=== PATIENT | female | born 1980 | race Caucasian/White ===

== ENCOUNTER 2016-10-13 15:53 | Emergency (ER) | payer OTHER ==
[~2016-10-13] VITALS: Ht 165.1 cm; Wt 95.3 kg
[~2016-10-13 15:53] MED LIST: ABILIFY20 MG; ABILIFY20 MG PO; ALBUTEROL0.09 MG/A2 IH; AMBIEN10 M1 PO; AMBIEN10 MG PO; ANAPROX DS550 MG PO; ARTHRITIS MEDS; AVELOX400 MG PO; BACTRIM DS 8001 TA1 PO; CLARITIN10 MG PO; CORDROL20 MG PO; DONNATAL1 TAB PO; FLEXERIL5 MG PO; FOLIC ACID1 MG; FOLIC ACID1 MG PO; HYDROCODONE BIT1 T11; HYDROCODONE BIT1 T11 PO; HYDROXYCHLOROQ200 MG PO; KEFLEX500 MG PO; KLONOPIN1 MG; KLONOPIN1 MG PO; LASIX40 MG PO; LOMOTIL 0.025 M1 TA1 PO; MELATONIN3 M1; METHOTREXATE S2.5 MG; MOBIC7.5 MG PO; MOTRIN800 MG PO; NORCO 325 MG-51 TAB PO; PLAQUENIL200 MG; PLAQUENIL200 MG PO; POTASSIUM20 MEQ PO; PREDNICOT20 MG PO; TRIMOX500 MG PO; VICODIN 5/500 505 MG PO; ZANTAC150 MG; ZITHROMAX250 MG PO; ZOFRAN ODT4 MG SL; [UNRECOGNIZED DRUG - OTHER] PO
[2016-10-13 15:59] VITALS: BP 136/86
[2016-10-13] MEDS ORDERED: REMERON15 M2 PO (16:00)
[2016-10-13] MEDS ORDERED: PLAQUENIL200 MG PO (16:01)
[2016-10-13] MEDS ORDERED: ANAPROX DS550 MG PO (16:08)
== END 2016-10-13 20:19 | disposition home or self-care (01) ==
LOC: ED 15:53
DX: M54.5 Low back pain (principal); M06.9 Rheumatoid arthritis, unspecified; Z88.6 Allergy status to analgesic agent

== ENCOUNTER 2017-06-16 23:24 | Emergency (ER) | payer OTHER ==
[~2017-06-16] VITALS: Wt 104.3 kg
[~2017-06-16 23:24] MED LIST changes: +REMERON15 M2 PO
[2017-06-16 23:46] LABS: BILIRUBIN NEGATIVE (NEGATIVE); BLOOD NEGATIVE (NEGATIVE); CLARITY SL CLOUDY (CLEAR); COLOR YELLOW (YELLOW); GLUCOSE TRACE (NEGATIVE); KETONE NEGATIVE (NEGATIVE); LEUKO ESTERASE NEGATIVE (NEGATIVE); NITRITE NEGATIVE (NEGATIVE); PH 5.5 (5.0-9.0); SPECIFIC GRAVITY 1.025 (1.005-1.030); UROBILINOGEN 0.2 E.U./dl (0.2-1.0)
[2017-06-16 23:54] LABS: EPITHELIAL CELLS 30-35
[2017-06-16 23:57] LABS: WBC 0-2 wbc/hpf (0-5)
[2017-06-17 00:02] LABS: BASO % 0.3 % (0.0-1.0); EOS # 0.1 10*3/uL (0.0-0.4); EOS % 0.9 % (1.0-4.0); HEMATOCRIT 32.6 % (37.0-47.0); HEMOGLOBIN 10.8 g/dl (12.0-16.0); LYMPH # 3.3 10*3/uL (1.3-4.4); LYMPH % 33.1 % (27.0-41.0); MEAN CELL VOLUME 85.8 fl (81.0-99.0); MEAN CORPUSCULAR HGB 28.4 pg (27.0-31.0); MEAN CORPUSCULAR HGB CONC 33.1 g/dl (33.0-37.0); MEAN PLATELET VOLUME 9.9 fl (9.6-12.3); MONO # 0.6 10*3/uL (0.1-1.0); MONO % 6.2 % (3.0-9.0); NEUT # 5.9 10*3/uL (2.3-7.9); NEUT % 58.8 % (47.0-73.0); PLATELET COUNT AUTOMATED 195 10*3/uL (130-400); RED CELL DISTRI WIDTH 13.4 % (0-14.5)
[2017-06-17 00:12] VITALS: BP 132/77
[2017-06-17 00:17] LABS: ALBUMIN 3.5 gm/dl (3.1-4.5); ALKALINE PHOSPHATASE 130 U/L (45-117); BUN 16 mg/dl (7-24); CHLORIDE 100 mmol/L (98-107); CREATININE 0.85 mg/dL (0.55-1.02); LIPASE 231 U/L (73-393); POTASSIUM 3.9 mmol/L (3.5-5.1); SGOT/AST 15 IU/L (3-35); SGPT/ALT 30 U/L (12-78); SODIUM 135 mmol/L (136-145); TOTAL PROTEIN 8.1 gm/dL (6.4-8.2)
== END 2017-06-17 01:21 | disposition home or self-care (01) ==
LOC: ED 23:24
PROVIDERS: Nurse Practitioner Family
DX: R10.11 Right upper quadrant pain (principal); R11.0 Nausea; Z88.5 Allergy status to narcotic agent

== ENCOUNTER 2017-07-25 22:55 | Emergency (ER) | payer SELFPAY ==
[~2017-07-25] VITALS: Ht 167.6 cm; Wt 104.3 kg
[2017-07-25 22:59] VITALS: BP 119/72
[2017-07-25] MEDS ORDERED: ALLEGRA-D 24 H1 EACH PO (23:42)
[2017-07-25] MEDS ORDERED: VIBRAMYCIN100 MG PO (23:42)
[2017-07-25] MEDS ORDERED: ALBUTEROL2.5 MG/0.5 INH (23:43)
[2017-07-25] MEDS ORDERED: TESSALON PERLE100 M1 PO (23:43)
== END 2017-07-26 00:49 | disposition home or self-care (01) ==
LOC: ED
DX: J40 Bronchitis, not specified as acute or chronic (principal); J01.90 Acute sinusitis, unspecified; H92.01 Otalgia, right ear; J45.909 Unspecified asthma, uncomplicated; M06.9 Rheumatoid arthritis, unspecified; Z88.6 Allergy status to analgesic agent; Z79.899 Other long term (current) drug therapy

== ENCOUNTER → 2017-11-23 | Outpatient (CLI) | payer OTHER ==
[~2017-11-23] MED LIST changes: +ALBUTEROL2.5 MG/0.5 INH; +ALLEGRA-D 24 H1 EACH PO; +AMINOPHYLLIN200 MG PO; +HYDROCODONE-AC1 EAC1 PO; +KLONOPIN1 M1 PO; -KLONOPIN1 MG; +METFORMIN HYDR500 MG PO; +PROMETHAZINE12.5 M1 PO; +TESSALON PERLE100 M1 PO; +TRAMADOL HCL50 MG PO; +VIBRAMYCIN100 MG PO; +Zofran4 MG SL
== END | disposition home or self-care (01) ==
LOC: LAB 07:05
DX: E11.9 Type 2 diabetes mellitus without complications (principal)

== ENCOUNTER 2017-12-23 01:22 | Emergency (ER) | payer OTHER ==
[~2017-12-23 01:22] MED LIST changes: -AMINOPHYLLIN200 MG PO; -HYDROCODONE-AC1 EAC1 PO; -METFORMIN HYDR500 MG PO; -PROMETHAZINE12.5 M1 PO; -TRAMADOL HCL50 MG PO; -Zofran4 MG SL
[2017-12-23 01:25] VITALS: BP 123/73
[2017-12-23 01:35] LABS: BILIRUBIN NEGATIVE (NEGATIVE); BLOOD 1+ (NEGATIVE); CLARITY SL CLOUDY (CLEAR); COLOR YELLOW (YELLOW); GLUCOSE NEGATIVE (NEGATIVE); KETONE NEGATIVE (NEGATIVE); LEUKO ESTERASE NEGATIVE (NEGATIVE); NITRITE NEGATIVE (NEGATIVE); SPECIFIC GRAVITY >= 1.030 (1.005-1.030); UROBILINOGEN 0.2 E.U./dl (0.2-1.0)
[2017-12-23 01:41] LABS: EPITHELIAL CELLS 35-40
[2017-12-23 01:42] LABS: BACTERIA 1+
[2017-12-23] MEDS ORDERED: AMINOPHYLLIN200 MG PO (01:44)
== END 2017-12-23 01:46 | disposition home or self-care (01) ==
LOC: ED 01:22
PROVIDERS: Physician Assistant
DX: N39.0 Urinary tract infection, site not specified (principal); Z79.899 Other long term (current) drug therapy; Z88.5 Allergy status to narcotic agent

== ENCOUNTER 2018-02-19 01:23 | Inpatient (IN) | payer OTHER ==
[~2018-02-19] VITALS: Ht 167.6 cm; Wt 91.8 kg
[2018-02-19] VITALS (8 sets, daily range): BP systolic 108–138; BP diastolic 50–79
--- NOTE | ~2018-02-19 | PR ---
[place], [place] PROGRESS NOTE NAME: GAIL MUJICA UNIT #: [id number] ROOM: 518 DOCTOR: MIKE FREITAS MD BIRTHDATE: [birth year] DOS: 02/20/2018 CARDIOLOGY PROGRESS NOTE SUBJECTIVE: The patient was seen in the Cardiology Department today on 02/20/2018 just prior to her stress test. She is a 37-year-old woman who has a history of supraventricular tachycardia and underwent ablation in 2000. She has not had symptomatic palpitations since then. She does have a family history of heart disease in her father. She presents to the hospital on this occasion with atypical chest discomfort, indigestion and one episode of vomiting. There was concern that this could represent angina and we were asked to assist in her care. Thus far, she shows no acute EKG changes. She has had no paroxysmal arrhythmias. Her troponin levels have been normal. Since admission, she continues to have some queasiness, but otherwise feels well. PHYSICAL EXAMINATION: VITAL SIGNS: On exam, her pulse is 74 and regular, blood pressure is 102/64. She is afebrile. NECK: Supple. She has no jugular distention. Carotids are full. LUNGS: Respirations are unlabored. Chest is clear to auscultation and percussion. HEART: Her heart has a regular rhythm without murmurs, rubs or gallops. ABDOMEN: Benign. EXTREMITIES: Showed no edema. IMPRESSION: 1. Atypical precordial chest pain. The patient shows no signs of acute coronary injury despite hours of discomfort. 2. Remote history of supraventricular tachycardia in childhood, treated with ablation in 2000. 3. Type 2 diabetes mellitus. 4. Remote history of cigarette abuse. 5. Family history of coronary artery disease. PLAN: We will proceed with an exercise stress test with further recommendations depending on the results of the stress test. If the stress test is normal, I would consider an evaluation for GI source of her symptoms given the prominent symptom of nausea that she is experiencing. [place], [place] PROGRESS NOTE NAME: GAIL MUJICA UNIT #: [id number] ROOM: 518 DOCTOR: MIKE FREITAS MD BIRTHDATE: [birth year] MIKE FREITAS MD CM:ALFRED [id number] MIKE FREITAS MD 02/21/18 1018 interface
--- NOTE | ~2018-02-19 | CON ---
[place], [place] REPORT OF CONSULTATION NAME: GAIL MUJICA UNIT #: [id number] ROOM: 518 DOCTOR: MIKE FREITAS MD BIRTHDATE: [birth year] DOS: 02/19/2018 CARDIOLOGY CONSULTATION REASON FOR CONSULTATION: Chest heaviness. HISTORY OF PRESENT ILLNESS: The patient is a 37-year-old woman who has no previous history of coronary artery disease, myocardial infarction, or stroke. She does have a history of cardiac arrhythmias and did undergo ablation around 2000 in [place]. She has had no arrhythmias documented since then per her report, but has not followed up with Cardiology either. She was in her normal state of health until about 3 or 4 days ago when she began suffering from a tightness and pressure across her chest and in the center of her chest. Nothing much would make it better or worse. Her appetite was poor and she was nauseous. She did vomit at least once. There was no blood in the vomitus and no coffee grounds. She finally did come to the Emergency Room because she was concerned about the persistence of the discomfort. In all, she has had more or less constant discomfort for about 3 or 4 days. Upon arrival at the Emergency Room, her electrocardiogram showed nonspecific anterior T-wave abnormalities, but no ST elevation or depression. Serial cardiac troponin levels have been entirely normal. PAST MEDICAL HISTORY: Includes, 1. History of arrhythmias. The patient states that she did undergo ablation 2000. 2. Anxiety and depression. 3. Hyperlipidemia. 4. Obesity. 5. Type 2 diabetes mellitus. 6. Former smoker. The patient quit in 2010. 7. The patient reports a history of rheumatoid arthritis, but is not on specific therapy for this. 8. History of cervical cancer. The patient is status post hysterectomy with single oophorectomy. She has one ovary in place, but thinks that she probably is menopausal nonetheless. MEDICATIONS: Prior to admission, clonazepam 1 mg b.i.d., hydrocodone with acetaminophen t.i.d. as needed, metformin 500 mg b.i.d., Remeron 15 mg daily, tramadol 50 mg q.i.d. as needed, and Ambien 10 mg at bedtime. ALLERGIES: THE PATIENT LISTS AN ALLERGY TO CODEINE. FAMILY HISTORY: The patient's father in October of unknown medical problems. The patient states that she does not know what finally took her father's life; he did have a history of coronary artery disease with a myocardial infarction when he was in his 30s. Her mother is alive and well. A few members of her mother's family do have diabetes. REVIEW OF SYSTEMS: The patient denies diplopia or loss of vision. She denies focal weakness. She denies syncope. She denies lightheadedness. She denies [place], [place] REPORT OF CONSULTATION NAME: GAIL MUJICA UNIT #: [id number] ROOM: 518 DOCTOR: MIKE FREITAS MD BIRTHDATE: [birth year] nausea or vomiting except for the episode noted above. She denies hemoptysis or hematemesis. She denies fevers, chills, sweats or recent weight change. She denies change in her bowel or bladder habits. She does have some anorexia, but denies any recent weight change. She did not have any blood in her stools or urine recently. She denies any skin rashes. She denies orthopnea or PND and denies palpitations or syncope. She denies peripheral edema. She does not have heat or cold intolerance and denies polyuria or polydipsia. Remainder of the review of systems is negative except as noted above. SOCIAL HISTORY: The patient is and lives with her . She was a smoker, but quit in 2010. She does not consume significant amounts of alcohol or illegal drugs. PHYSICAL EXAMINATION: GENERAL: The patient is a white female who is awake, alert and oriented. VITAL SIGNS: Pulse is 62 and regular and blood pressure is 110/70. She is afebrile. She weighs 91.8 kg and has a body mass index of 32.7. HEENT: Normocephalic and atraumatic. Extraocular muscles are intact. Sclerae are clear. Pupils are equal, round and react to light. The oral mucosa is moist. Tongue is midline. NECK: Supple. She has no jugular distention or hepatojugular reflux. Carotids are full. There are no bruits. She has no neck or supraclavicular masses, no thyromegaly. LUNGS: Respirations are unlabored. Her chest is clear to auscultation and percussion. She has no presacral edema or chest wall tenderness. HEART: Has a regular rhythm. She has no murmurs, rubs or gallops. The PMI is not displaced. She has no precordial heave, lift or thrill. ABDOMEN: Obese, but otherwise benign, without mass, organomegaly or bruits. She does have slight epigastric tenderness, but this does not reproduce her presenting symptoms. EXTREMITIES: Showed no clubbing, cyanosis or edema. Peripheral pulses are easily palpated in the feet bilaterally. LABORATORY DATA: I reviewed her electrocardiogram, which showed sinus rhythm with nonspecific anterior T-wave abnormalities. Chest x-ray is unremarkable. Serial troponin levels are normal. IMPRESSION: 1. Atypical precordial chest pain. The patient shows no signs of acute coronary injury despite hours of pain. 2. Type 2 diabetes mellitus. 3. Remote history of cigarette abuse. 4. Family history of coronary artery disease. 5. History of arrhythmias in childhood, treated by ablation in 2000. PLAN: We will proceed with an exercise myocardial perfusion study within the next 24 hours. If that is normal and if an echocardiogram is normal, then no other cardiac workup would be indicated and other causes for pain such as GI causes, cholecystitis, etc., would be considered. [place], [place] REPORT OF CONSULTATION NAME: GAIL MUJICA UNIT #: [id number] ROOM: 518 DOCTOR: MIKE FREITAS MD BIRTHDATE: [birth year] MIKE FREITAS MD CM:CONSTR:REPORT OF CONSULTATION 153 02/19/181920 interface
--- NOTE | ~2018-02-19 | PR ---
[place], [place] PROGRESS NOTE NAME: GAIL MUJICA UNIT #: [id number] ROOM: 518 DOCTOR: ISRRAEL, PHD CHAVEZ BIRTHDATE: [birth year] DOS: 02/21/2018 SUBJECTIVE: I met with the patient for followup. She reports feeling much better, both physically and emotionally. Mood was stable and affect was restricted in range. She denied homicidal and suicidal ideation. Discussed the patient's plans for followup treatment and self-care, provided the patient with my business card. The patient will be discharged today. Marley Maciel, CM:ALFRED [id number] PHD SCOTT MACIEL 02/21/18 1437 interface
--- NOTE | ~2018-02-19 | CON ---
[place], [place] REPORT OF CONSULTATION NAME: GAIL MUJICA UNIT #: [id number] ROOM: 518 DOCTOR: ISRRAEL, PHD SCOTT BIRTHDATE: [birth year] DOS: 02/20/2018 HISTORY OF PRESENT ILLNESS: The patient is a 37-year-old female referred by the hospitalist with concerns for depression and bereavement. At the present time, the patient is on the 5th floor of [facility]. The patient's father in October and she continues to grieve his . She is and has a daughter. The patient lives with her and daughter. The patient lives with her and daughter. She works as an aid. Tobacco, alcohol and illegal drug use were denied. PAST MEDICAL HISTORY: Anxiety, arrhythmia, cervical cancer, depression, diabetes, hyperlipidemia, rheumatoid arthritis. MEDICATIONS: Phenergan, Lovenox, Humalog, Protonix, Ultram, dextrose, Zofran, Tylenol, Ambien, Klonopin, [place] 5/325. PHYSICAL EXAMINATION: The patient was awake, alert and oriented to person, place and time. Affect was tearful and mood was depressed. She firmly denies suicidal and homicidal ideation, plan and intent. Discussed her mental health history. Speech and language appeared within normal limits on a conversational basis. Thought process was linear and goal directed. Insight and judgment are appropriate. Discussed the patient's grief Utilize CBT and supportive therapy interventions. The patient appeared to benefit. DIAGNOSES: Major depressive disorder, recurrent, unspecified; unspecified anxiety disorder. RECOMMENDATIONS: Outpatient counseling for depression and bereavement. She also found attending group sessions at the home to be helpful in the past and plans to continue with this as well. She also finds her psychiatric medications to be helpful. I will follow her as needed during her hospitalization. Thank you very much for this consult. Marley Maciel, PhD CM:CONSTR:REPORT OF CONSULTATION 1641 02/21/18 0552 interface
--- NOTE | ~2018-02-19 | EKG ---
[place], [place] ELECTROCARDIOGRAM REPORT NAME: GAIL MUJICA UNIT #: [id number] ROOM: 518 DOCTOR: LESA DRAFT REPORT BIRTHDATE: [birth year] [facility] Test Date: 2018-02-19 Test Time: 01:26:12 Pat Name: GAIL MUJICA Department: Room: 518 Gender: F Participant Administrator: Delta Barksdale : 1980 Requested By: JAZZMINE SANTOS Order Number: [id number] Reading MD: Stef Lake MD Measurements Intervals [employer] Rate: 66 P: 3 OK: 147 QRS: 24 QRSD: 88 T: 15 QT: 409 QTc: 429 Interpretive Statements Sinus rhythm Low voltage, precordial leads Nonspecific T abnormalities, anterior leads Electronically Signed On 02-19-2018 14:26:40 PST by Stef Lake MD CM:EKGRPT:ELECTROCARDIOGRAM REPORT [id number] JAZZMINE WILHELM DRAFT REPORT JAZZMINE SANTOS DO
[~2018-02-19 01:23] MED LIST changes: +AMINOPHYLLIN200 MG PO
[2018-02-19 01:41] LABS: BASO # 0.1 10*3/uL (0.0-0.1); BASO % 0.4 % (0.0-1.0); EOS # 0.1 10*3/uL (0.0-0.4); EOS % 0.9 % (1.0-4.0); HEMATOCRIT 36.8 % (37.0-47.0); MEAN CELL VOLUME 87.8 fl (81.0-99.0); MEAN CORPUSCULAR HGB 28.6 pg (27.0-31.0); MEAN CORPUSCULAR HGB CONC 32.6 g/dl (33.0-37.0); MEAN PLATELET VOLUME 9.9 fl (9.6-12.3); MONO # 0.8 10*3/uL (0.1-1.0); MONO % 6.7 % (3.0-9.0); NEUT # 6.4 10*3/uL (2.3-7.9); NEUT % 56.2 % (47.0-73.0); PLATELET COUNT AUTOMATED 244 10*3/uL (130-400); RED BLOOD COUNT 4.19 10*6/uL (4.10-5.10); RED CELL DISTRI WIDTH 12.9 % (0-14.5); WHITE BLOOD COUNT 11.4 10*3/uL (4.8-10.8)
[2018-02-19 01:52] LABS: ACT PARTIAL THROMBO TIME 25.1 SECONDS (20.8-31.5)
[2018-02-19 01:59] LABS: ALBUMIN 3.7 gm/dl (3.1-4.5); ALKALINE PHOSPHATASE 132 U/L (45-117); BUN 9 mg/dl (7-24); CHLORIDE 102 mmol/L (98-107); POTASSIUM 3.4 mmol/L (3.5-5.1); SGOT/AST 27 IU/L (3-35); SGPT/ALT 39 U/L (12-78); SODIUM 135 mmol/L (136-145); TOTAL PROTEIN 8.5 gm/dL (6.4-8.2)
[2018-02-19 02:02] LABS: TROPONIN I < 0.015 ng/ml (<0.045)
[2018-02-19] MEDS ORDERED: METFORMIN HYDR500 MG PO (02:21)
[2018-02-19] MEDS ORDERED: HYDROCODONE-AC1 EAC1 PO (02:22)
[2018-02-19] MEDS ORDERED: TRAMADOL HCL50 MG PO (02:22)
[2018-02-20] VITALS: BP 104/71
[2018-02-20 06:41] LABS: BASO % 0.6 % (0.0-1.0); EOS # 0.1 10*3/uL (0.0-0.4); EOS % 1.5 % (1.0-4.0); HEMATOCRIT 36.4 % (37.0-47.0); HEMOGLOBIN 11.6 g/dl (12.0-16.0); LYMPH # 3.1 10*3/uL (1.3-4.4); LYMPH % 42.9 % (27.0-41.0); MEAN CELL VOLUME 89.2 fl (81.0-99.0); MEAN CORPUSCULAR HGB 28.4 pg (27.0-31.0); MEAN CORPUSCULAR HGB CONC 31.9 g/dl (33.0-37.0); MEAN PLATELET VOLUME 10.3 fl (9.6-12.3); MONO # 0.4 10*3/uL (0.1-1.0); MONO % 5.9 % (3.0-9.0); NEUT # 3.5 10*3/uL (2.3-7.9); NEUT % 48.3 % (47.0-73.0); PLATELET COUNT AUTOMATED 217 10*3/uL (130-400); RED BLOOD COUNT 4.08 10*6/uL (4.10-5.10); RED CELL DISTRI WIDTH 13.1 % (0-14.5); WHITE BLOOD COUNT 7.2 10*3/uL (4.8-10.8)
[2018-02-20 07:05] LABS: BUN 9 mg/dl (7-24); CHLORIDE 109 mmol/L (98-107); POTASSIUM 3.9 mmol/L (3.5-5.1); SODIUM 143 mmol/L (136-145)
[2018-02-20 07:17] LABS: CREATININE 0.89 mg/dL (0.55-1.02); THYROID STIM HORMONE (HS) 0.653 uIU/ml (0.358-4.75)
[2018-02-20 07:25] LABS: VITAMIN D, 25-HYDROXY 26.8 ng/mL (30-100)
[2018-02-20 08:00] VITALS: BP 102/64
[2018-02-20 08:35] VITALS: BP 102/64
[2018-02-20 12:00] VITALS: BP 119/80
[2018-02-20 16:00] VITALS: BP 103/74
[2018-02-20 20:00] VITALS: BP 111/62
[2018-02-21] VITALS: BP 113/79
[2018-02-21 07:04] LABS: BASO % 0.5 % (0.0-1.0); EOS # 0.1 10*3/uL (0.0-0.4); EOS % 1.7 % (1.0-4.0); HEMOGLOBIN 11.7 g/dl (12.0-16.0); LYMPH # 2.7 10*3/uL (1.3-4.4); LYMPH % 36.3 % (27.0-41.0); MEAN CELL VOLUME 88.5 fl (81.0-99.0); MEAN CORPUSCULAR HGB CONC 31.6 g/dl (33.0-37.0); MEAN PLATELET VOLUME 9.9 fl (9.6-12.3); MONO # 0.5 10*3/uL (0.1-1.0); MONO % 6.6 % (3.0-9.0); NEUT # 4.1 10*3/uL (2.3-7.9); PLATELET COUNT AUTOMATED 215 10*3/uL (130-400); RED BLOOD COUNT 4.18 10*6/uL (4.10-5.10); RED CELL DISTRI WIDTH 13.1 % (0-14.5); WHITE BLOOD COUNT 7.5 10*3/uL (4.8-10.8)
[2018-02-21 07:18] LABS: BUN 12 mg/dl (7-24); CHLORIDE 108 mmol/L (98-107); CREATININE 0.92 mg/dL (0.55-1.02); POTASSIUM 3.8 mmol/L (3.5-5.1); SODIUM 143 mmol/L (136-145)
[2018-02-21 08:00] VITALS: BP 108/74
[2018-02-21] MEDS ORDERED: Zofran4 MG SL (08:33)
[2018-02-21] MEDS ORDERED: PROMETHAZINE12.5 M1 PO (08:33)
== END 2018-02-21 11:00 | disposition home or self-care (01) | DRG 392 ==
LOC: ED 01:23 → 5E 03:50 → EDHOLD 03:50 → 5E 04:01
PROVIDERS: Emergency Medicine; Student in an Organized Health Care Education/Training Program
DX: K21.9 Gastro-esophageal reflux disease without esophagitis (principal); E87.1 Hypo-osmolality and hyponatremia; I47.1 Supraventricular tachycardia; F33.9 Major depressive disorder, recurrent, unspecified; E87.6 Hypokalemia; E11.65 Type 2 diabetes mellitus with hyperglycemia; F41.9 Anxiety disorder, unspecified; E78.5 Hyperlipidemia, unspecified; M06.9 Rheumatoid arthritis, unspecified; E78.1 Pure hyperglyceridemia; E66.9 Obesity, unspecified; Z87.891 Personal history of nicotine dependence; Z88.6 Allergy status to analgesic agent; Z87.440 Personal history of urinary (tract) infections; Z85.41 Personal history of malignant neoplasm of cervix uteri; Z90.710 Acquired absence of both cervix and uterus; Z90.722 Acquired absence of ovaries, bilateral; Z82.49 Family history of ischemic heart disease and other diseases of the circulatory system; Z79.84 Long term (current) use of oral hypoglycemic drugs; Z79.899 Other long term (current) drug therapy; Z80.3 Family history of malignant neoplasm of breast; Z68.32 Body mass index [BMI] 32.0-32.9, adult

== ENCOUNTER 2018-04-10 09:51 | Emergency (ER) | payer OTHER ==
[~2018-04-10] VITALS: Ht 167.6 cm; Wt 90.7 kg
[2018-04-10 09:51] VITALS: BP 126/77
[~2018-04-10 09:51] MED LIST changes: +HYDROCODONE-AC1 EAC1 PO; +METFORMIN HYDR500 MG PO; +PROMETHAZINE12.5 M1 PO; +TRAMADOL HCL50 MG PO; +Zofran4 MG SL
[2018-04-10 10:37] LABS: HEMATOCRIT 38.1 % (37.0-47.0); HEMOGLOBIN 12.3 g/dl (12.0-16.0); MEAN CELL VOLUME 88.4 fl (81.0-99.0); MEAN CORPUSCULAR HGB 28.5 pg (27.0-31.0); MEAN CORPUSCULAR HGB CONC 32.3 g/dl (33.0-37.0); MEAN PLATELET VOLUME 9.7 fl (9.6-12.3); PLATELET COUNT AUTOMATED 170 10*3/uL (130-400); RED BLOOD COUNT 4.31 10*6/uL (4.10-5.10); RED CELL DISTRI WIDTH 12.9 % (0-14.5); WHITE BLOOD COUNT 6.6 10*3/uL (4.8-10.8)
[2018-04-10 10:52] LABS: ALBUMIN 3.2 gm/dl (3.1-4.5); ALKALINE PHOSPHATASE 121 U/L (45-117); BUN 13 mg/dl (7-24); CHLORIDE 106 mmol/L (98-107); CREATININE 0.87 mg/dL (0.55-1.02); LIPASE 62 U/L (73-393); POTASSIUM 4.6 mmol/L (3.5-5.1); SGOT/AST 19 IU/L (3-35); SGPT/ALT 24 U/L (12-78); SODIUM 137 mmol/L (136-145); TOTAL PROTEIN 8.1 gm/dL (6.4-8.2)
[2018-04-10 11:00] LABS: PLATELET SUFFICIENCY NORMAL (NORMAL); TOTAL CELLS COUNTED 100 #CELLS
[2018-04-10 11:01] LABS: POLYCHROMASIA SLIGHT
[2018-04-10 11:30] LABS: BILIRUBIN NEGATIVE (NEGATIVE); BLOOD NEGATIVE (NEGATIVE); CLARITY SL CLOUDY (CLEAR); COLOR YELLOW (YELLOW); GLUCOSE NEGATIVE (NEGATIVE); KETONE NEGATIVE (NEGATIVE); LEUKO ESTERASE NEGATIVE (NEGATIVE); NITRITE NEGATIVE (NEGATIVE); PH 5.5 (5.0-9.0); UROBILINOGEN 0.2 E.U./dl (0.2-1.0)
[2018-04-10 11:46] LABS: BACTERIA 2+
[2018-04-10] MEDS ORDERED: COMPAZINE10 M1 PO (12:44)
== END 2018-04-10 12:47 | disposition home or self-care (01) ==
LOC: ED 09:51
PROVIDERS: Physician Assistant
DX: K52.9 Noninfective gastroenteritis and colitis, unspecified (principal); Z88.5 Allergy status to narcotic agent; Z79.84 Long term (current) use of oral hypoglycemic drugs; Z79.899 Other long term (current) drug therapy; Z90.710 Acquired absence of both cervix and uterus; Z87.891 Personal history of nicotine dependence

== ENCOUNTER 2018-05-14 11:29 | Emergency (ER) | payer OTHER ==
[~2018-05-14] VITALS: Ht 165.1 cm; Wt 87.1 kg
[2018-05-14 11:29] VITALS: BP 121/33
[~2018-05-14 11:29] MED LIST changes: +COMPAZINE10 M1 PO
[2018-05-14 12:12] LABS: BASO % 0.5 % (0.0-1.0); EOS # 0.1 10*3/uL (0.0-0.4); HEMOGLOBIN 12.5 g/dl (12.0-16.0); LYMPH # 2.1 10*3/uL (1.3-4.4); LYMPH % 23.6 % (27.0-41.0); MEAN CELL VOLUME 86.2 fl (81.0-99.0); MEAN CORPUSCULAR HGB 29.1 pg (27.0-31.0); MEAN CORPUSCULAR HGB CONC 33.8 g/dl (33.0-37.0); MEAN PLATELET VOLUME 9.8 fl (9.6-12.3); MONO # 0.4 10*3/uL (0.1-1.0); MONO % 5.1 % (3.0-9.0); NEUT % 69.5 % (47.0-73.0); PLATELET COUNT AUTOMATED 253 10*3/uL (130-400); RED BLOOD COUNT 4.29 10*6/uL (4.10-5.10); WHITE BLOOD COUNT 8.7 10*3/uL (4.8-10.8)
[2018-05-14 12:14] LABS: BILIRUBIN NEGATIVE (NEGATIVE); CLARITY TURBID (CLEAR); COLOR RED (YELLOW); GLUCOSE NEGATIVE (NEGATIVE); KETONE NEGATIVE (NEGATIVE); NITRITE NEGATIVE (NEGATIVE); SPECIFIC GRAVITY 1.025 (1.005-1.030); UROBILINOGEN 0.2 E.U./dl (0.2-1.0)
[2018-05-14 12:22] LABS: ACT PARTIAL THROMBO TIME 25.3 SECONDS (20.8-31.5)
[2018-05-14 12:26] LABS: BLOOD 3+ (NEGATIVE); LEUKO ESTERASE TRACE (NEGATIVE)
[2018-05-14 12:29] LABS: RBC TNTC rbc/hpf (0-2)
[2018-05-14 12:32] LABS: BACTERIA 2+; MUCOUS 1+; WBC TNTC wbc/hpf (0-5)
[2018-05-14 12:39] LABS: ALBUMIN 3.5 gm/dl (3.1-4.5); ALKALINE PHOSPHATASE 136 U/L (45-117); BUN 9 mg/dl (7-24); CHLORIDE 105 mmol/L (98-107); CREATININE 0.85 mg/dL (0.55-1.02); LIPASE 70 U/L (73-393); POTASSIUM 4.1 mmol/L (3.5-5.1); SGOT/AST 22 IU/L (3-35); SGPT/ALT 40 U/L (12-78); SODIUM 138 mmol/L (136-145); TOTAL PROTEIN 8.7 gm/dL (6.4-8.2)
[2018-05-14] MEDS ORDERED: SEPTDS PO (13:06)
== END 2018-05-14 13:10 | disposition home or self-care (01) ==
LOC: ED 11:29
PROVIDERS: Emergency Medicine
DX: N39.0 Urinary tract infection, site not specified (principal); R33.9 Retention of urine, unspecified; E11.9 Type 2 diabetes mellitus without complications; E78.5 Hyperlipidemia, unspecified; E66.9 Obesity, unspecified; M06.9 Rheumatoid arthritis, unspecified; Z79.899 Other long term (current) drug therapy; Z87.891 Personal history of nicotine dependence; Z88.6 Allergy status to analgesic agent; Z90.710 Acquired absence of both cervix and uterus

== ENCOUNTER → 2018-08-09 | Outpatient (CLI) | payer OTHER ==
[~2018-08-09] MED LIST changes: +SEPTDS PO
[2018-08-09 07:37] LABS: HEMATOCRIT 38.9 % (37.0-47.0); HEMOGLOBIN 12.3 g/dl (12.0-16.0); MEAN CELL VOLUME 90.9 fl (81.0-99.0); MEAN CORPUSCULAR HGB 28.7 pg (27.0-31.0); MEAN CORPUSCULAR HGB CONC 31.6 g/dl (33.0-37.0); RED BLOOD COUNT 4.28 10*6/uL (4.10-5.10); RED CELL DISTRI WIDTH 13.3 % (0-14.5); WHITE BLOOD COUNT 10.2 10*3/uL (4.8-10.8)
[2018-08-09 08:10] LABS: ALBUMIN 3.3 gm/dl (3.1-4.5); BUN 17 mg/dl (7-24); CHLORIDE 105 mmol/L (98-107); CREATININE 0.84 mg/dL (0.55-1.02); HDL CHOLESTEROL 31 mg/dl (40-60); POTASSIUM 3.8 mmol/L (3.5-5.1); SGOT/AST 13 IU/L (3-35); SGPT/ALT 28 U/L (12-78); SODIUM 138 mmol/L (136-145)
[2018-08-09 08:13] LABS: ALKALINE PHOSPHATASE 132 U/L (45-117); CHOLESTEROL 201 mg/dL (<200); LDL CHOLESTEROL 99 mg/dL (9-159); TOTAL PROTEIN 8.2 gm/dL (6.4-8.2); TRIGLYCERIDES 354 mg/dl (<150); VLDL CHOLESTEROL 71 mg/dL (6-40)
== END | disposition home or self-care (01) ==
LOC: LAB 06:43
PROVIDERS: Internal Medicine
DX: E11.42 Type 2 diabetes mellitus with diabetic polyneuropathy (principal); E55.9 Vitamin D deficiency, unspecified

== ENCOUNTER → 2018-11-27 | Outpatient (CLI) | payer OTHER ==
[2018-11-27 13:46] LABS: ALBUMIN 4.1 gm/dl (3.1-4.5); ALKALINE PHOSPHATASE 111 U/L (45-117); BUN 13 mg/dl (7-24); CHLORIDE 103 mmol/L (98-107); CHOLESTEROL 218 mg/dL (<200); CREATININE 0.93 mg/dL (0.55-1.02); HDL CHOLESTEROL 43 mg/dl (40-60); LDL CHOLESTEROL 142 mg/dL (9-159); POTASSIUM 4.4 mmol/L (3.5-5.1); SGOT/AST 13 IU/L (3-35); SGPT/ALT 23 U/L (12-78); SODIUM 138 mmol/L (136-145); TOTAL PROTEIN 9.3 gm/dL (6.4-8.2); TRIGLYCERIDES 163 mg/dl (<150); VLDL CHOLESTEROL 33 mg/dL (6-40)
[2018-11-27 13:53] LABS: THYROID STIM HORMONE (HS) 0.308 uIU/ml (0.358-4.75)
== END | disposition home or self-care (01) ==
LOC: LAB 12:53
PROVIDERS: Internal Medicine
DX: E11.42 Type 2 diabetes mellitus with diabetic polyneuropathy (principal)

== ENCOUNTER → 2019-04-07 | Outpatient (CLI) | payer OTHER ==
[~2019-04-07] MED LIST changes: +TESSALON PERLE100 MG PO
[2019-04-07 07:44] LABS: BASO % 0.5 % (0.0-1.0); EOS # 0.1 10*3/uL (0.0-0.4); EOS % 1.8 % (1.0-4.0); HEMATOCRIT 36.1 % (37.0-47.0); HEMOGLOBIN 11.7 g/dl (12.0-16.0); LYMPH # 2.6 10*3/uL (1.3-4.4); LYMPH % 46.3 % (27.0-41.0); MEAN CORPUSCULAR HGB 29.2 pg (27.0-31.0); MEAN CORPUSCULAR HGB CONC 32.4 g/dl (33.0-37.0); MEAN PLATELET VOLUME 9.9 fl (9.6-12.3); MONO # 0.4 10*3/uL (0.1-1.0); MONO % 7.5 % (3.0-9.0); NEUT # 2.4 10*3/uL (2.3-7.9); NEUT % 43.5 % (47.0-73.0); PLATELET COUNT AUTOMATED 208 10*3/uL (130-400); RED BLOOD COUNT 4.01 10*6/uL (4.10-5.10); RED CELL DISTRI WIDTH 12.1 % (0-14.5); WHITE BLOOD COUNT 5.6 10*3/uL (4.8-10.8)
[2019-04-07 07:55] LABS: ALBUMIN 3.4 gm/dl (3.1-4.5); ALKALINE PHOSPHATASE 103 U/L (45-117); BUN 14 mg/dl (7-24); CHLORIDE 107 mmol/L (98-107); CHOLESTEROL 183 mg/dL (<200); CREATININE 0.89 mg/dL (0.55-1.02); HDL CHOLESTEROL 39 mg/dl (40-60); LDL CHOLESTEROL 119 mg/dL (9-159); POTASSIUM 3.8 mmol/L (3.5-5.1); SGOT/AST 12 IU/L (3-35); SGPT/ALT 23 U/L (12-78); SODIUM 140 mmol/L (136-145); TOTAL PROTEIN 8.1 gm/dL (6.4-8.2); TRIGLYCERIDES 124 mg/dl (<150); VLDL CHOLESTEROL 25 mg/dL (6-40)
== END | disposition home or self-care (01) ==
LOC: LAB 06:38
PROVIDERS: Internal Medicine
DX: E11.42 Type 2 diabetes mellitus with diabetic polyneuropathy (principal)

== ENCOUNTER 2019-04-12 02:53 | Emergency (ER) | payer OTHER ==
[~2019-04-12] VITALS: Ht 160 cm; Wt 83.9 kg
[~2019-04-12 02:53] MED LIST changes: -TESSALON PERLE100 MG PO
[2019-04-12 02:57] VITALS: BP 128/47
[2019-04-12] MEDS ORDERED: TESSALON PERLE100 MG PO (04:23)
== END 2019-04-12 04:45 | disposition home or self-care (01) ==
LOC: ED 02:53
DX: J06.9 Acute upper respiratory infection, unspecified (principal); E11.9 Type 2 diabetes mellitus without complications; E78.5 Hyperlipidemia, unspecified; E66.9 Obesity, unspecified; M06.9 Rheumatoid arthritis, unspecified; Z87.891 Personal history of nicotine dependence; Z88.5 Allergy status to narcotic agent; Z79.899 Other long term (current) drug therapy; Z79.2 Long term (current) use of antibiotics; Z68.30 Body mass index [BMI] 30.0-30.9, adult; Z90.710 Acquired absence of both cervix and uterus

== ENCOUNTER 2019-07-22 15:07 | Emergency (ER) | payer OTHER ==
[~2019-07-22] VITALS: Ht 167.6 cm; Wt 85.3 kg
[~2019-07-22 15:07] MED LIST changes: +TESSALON PERLE100 MG PO
[2019-07-22 16:16] VITALS: BP 125/81
[2019-07-22 16:32] LABS: BASO # 0.1 10*3/uL (0.0-0.1); BASO % 0.7 % (0.0-1.0); EOS # 0.1 10*3/uL (0.0-0.4); EOS % 0.7 % (1.0-4.0); LYMPH # 2.4 10*3/uL (1.3-4.4); LYMPH % 32.9 % (27.0-41.0); MEAN CELL VOLUME 89.1 fl (81.0-99.0); MEAN CORPUSCULAR HGB CONC 32.6 g/dl (33.0-37.0); MEAN PLATELET VOLUME 10.1 fl (9.6-12.3); MONO # 0.5 10*3/uL (0.1-1.0); MONO % 7.1 % (3.0-9.0); NEUT # 4.2 10*3/uL (2.3-7.9); NEUT % 58.2 % (47.0-73.0); PLATELET COUNT AUTOMATED 190 10*3/uL (130-400); RED BLOOD COUNT 3.93 10*6/uL (4.10-5.10); RED CELL DISTRI WIDTH 12.2 % (0-14.5); WHITE BLOOD COUNT 7.1 10*3/uL (4.8-10.8)
[2019-07-22 16:48] LABS: BUN 13 mg/dl (7-24); CHLORIDE 110 mmol/L (98-107); CREATININE 0.75 mg/dL (0.55-1.02); POTASSIUM 4.5 mmol/L (3.5-5.1); SODIUM 141 mmol/L (136-145); TROPONIN I < 0.015 ng/ml (<0.045)
== END 2019-07-22 17:40 | disposition home or self-care (01) ==
LOC: ED 15:07
PROVIDERS: Emergency Medicine
DX: R42 Dizziness and giddiness (principal); Z88.5 Allergy status to narcotic agent; Z79.899 Other long term (current) drug therapy; Z79.84 Long term (current) use of oral hypoglycemic drugs; Z79.2 Long term (current) use of antibiotics; F32.9 Major depressive disorder, single episode, unspecified; E11.9 Type 2 diabetes mellitus without complications; E78.5 Hyperlipidemia, unspecified; Z87.891 Personal history of nicotine dependence

== ENCOUNTER → 2019-09-12 | Outpatient (CLI) | payer OTHER | END | disposition home or self-care (01) | LOC: COVID19 13:45 | DX: Z03.818 Encounter for observation for suspected exposure to other biological agents ruled out (principal) ==

== ENCOUNTER → 2019-10-06 | Outpatient (CLI) | payer OTHER ==
[2019-10-06 06:57] LABS: MEAN CELL VOLUME 88.8 fl (81.0-99.0); MEAN CORPUSCULAR HGB 28.7 pg (27.0-31.0); MEAN CORPUSCULAR HGB CONC 32.4 g/dl (33.0-37.0); RED BLOOD COUNT 4.28 10*6/uL (4.10-5.10); RED CELL DISTRI WIDTH 12.6 % (0-14.5); WHITE BLOOD COUNT 6.3 10*3/uL (4.8-10.8)
[2019-10-06 07:34] LABS: ALBUMIN 3.3 gm/dl (3.1-4.5); ALKALINE PHOSPHATASE 114 U/L (45-117); BUN 16 mg/dl (7-24); CHLORIDE 108 mmol/L (98-107); CHOLESTEROL 202 mg/dL (<200); CREATININE 0.98 mg/dL (0.55-1.02); HDL CHOLESTEROL 37 mg/dl (40-60); LDL CHOLESTEROL 130 mg/dL (9-159); POTASSIUM 4.3 mmol/L (3.5-5.1); SGOT/AST 8 IU/L (3-35); SGPT/ALT 24 U/L (12-78); SODIUM 139 mmol/L (136-145); TOTAL PROTEIN 8.2 gm/dL (6.4-8.2); TRIGLYCERIDES 176 mg/dl (<150); VLDL CHOLESTEROL 35 mg/dL (6-40)
== END | disposition home or self-care (01) ==
LOC: LAB 06:23
PROVIDERS: Internal Medicine
DX: E11.42 Type 2 diabetes mellitus with diabetic polyneuropathy (principal)

== ENCOUNTER → 2020-04-08 | Outpatient (CLI) | payer OTHER ==
[~2020-04-08] MED LIST changes: +VALTREX500 MG PO
[2020-04-08 09:00] LABS: BASO % 0.4 % (0.0-1.0); EOS # 0.1 10*3/uL (0.0-0.4); EOS % 1.3 % (1.0-4.0); HEMATOCRIT 40.6 % (37.0-47.0); LYMPH # 2.4 10*3/uL (1.3-4.4); LYMPH % 35.1 % (27.0-41.0); MEAN CELL VOLUME 88.1 fl (81.0-99.0); MEAN CORPUSCULAR HGB CONC 31.8 g/dl (33.0-37.0); MEAN PLATELET VOLUME 9.9 fl (9.6-12.3); MONO # 0.5 10*3/uL (0.1-1.0); MONO % 6.7 % (3.0-9.0); NEUT # 3.8 10*3/uL (2.3-7.9); NEUT % 56.1 % (47.0-73.0); PLATELET COUNT AUTOMATED 231 10*3/uL (130-400); RED BLOOD COUNT 4.61 10*6/uL (4.10-5.10); RED CELL DISTRI WIDTH 12.6 % (0-14.5); WHITE BLOOD COUNT 6.8 10*3/uL (4.8-10.8)
[2020-04-08 09:14] LABS: ALBUMIN 3.8 gm/dl (3.1-4.5); ALKALINE PHOSPHATASE 98 U/L (45-117); BUN 10 mg/dl (7-24); CHLORIDE 112 mmol/L (98-107); CHOLESTEROL 195 mg/dL (<200); CREATININE 0.91 mg/dL (0.55-1.02); HDL CHOLESTEROL 51 mg/dl (40-60); LDL CHOLESTEROL 110 mg/dL (9-159); POTASSIUM 4.3 mmol/L (3.5-5.1); SGOT/AST 20 IU/L (3-35); SGPT/ALT 30 U/L (12-78); SODIUM 141 mmol/L (136-145); TOTAL PROTEIN 8.8 gm/dL (6.4-8.2); TRIGLYCERIDES 168 mg/dl (<150); VLDL CHOLESTEROL 34 mg/dL (6-40)
== END | disposition home or self-care (01) ==
LOC: LAB 08:16
PROVIDERS: ATTEND Internal Medicine
DX: E11.42 Type 2 diabetes mellitus with diabetic polyneuropathy (principal); M79.18 Myalgia, other site; G89.29 Other chronic pain

== ENCOUNTER 2020-05-08 22:37 | Emergency (ER) | payer OTHER ==
[~2020-05-08] VITALS: Ht 165.1 cm; Wt 79.4 kg
[~2020-05-08 22:37] MED LIST changes: -VALTREX500 MG PO
[2020-05-08 22:48] VITALS: BP 107/40
[2020-05-08] MEDS ORDERED: VALTREX500 MG PO (23:01)
== END 2020-05-08 23:09 | disposition home or self-care (01) ==
LOC: ED 22:37
DX: B02.9 Zoster without complications (principal); F41.9 Anxiety disorder, unspecified; E11.9 Type 2 diabetes mellitus without complications; Z88.5 Allergy status to narcotic agent; Z79.899 Other long term (current) drug therapy; Z79.84 Long term (current) use of oral hypoglycemic drugs; Z90.710 Acquired absence of both cervix and uterus

== ENCOUNTER → 2020-10-07 | Outpatient (CLI) | payer OTHER ==
[~2020-10-07] MED LIST changes: +VALTREX500 MG PO
[2020-10-07 11:44] LABS: BASO % 0.6 % (0.0-1.0); EOS # 0.1 10*3/uL (0.0-0.4); EOS % 1.1 % (1.0-4.0); HEMATOCRIT 38.3 % (37.0-47.0); LYMPH # 2.6 10*3/uL (1.3-4.4); LYMPH % 35.9 % (27.0-41.0); MEAN CELL VOLUME 89.1 fl (81.0-99.0); MEAN CORPUSCULAR HGB 28.6 pg (27.0-31.0); MEAN CORPUSCULAR HGB CONC 32.1 g/dl (33.0-37.0); MEAN PLATELET VOLUME 9.7 fl (9.6-12.3); MONO # 0.5 10*3/uL (0.1-1.0); NEUT # 3.9 10*3/uL (2.3-7.9); NEUT % 55.1 % (47.0-73.0); PLATELET COUNT AUTOMATED 202 10*3/uL (130-400); RED CELL DISTRI WIDTH 12.1 % (0-14.5); WHITE BLOOD COUNT 7.1 10*3/uL (4.8-10.8)
[2020-10-07 12:05] LABS: ALBUMIN 3.7 gm/dl (3.1-4.5); ALKALINE PHOSPHATASE 86 U/L (45-117); BUN 13 mg/dl (7-24); CHLORIDE 106 mmol/L (98-107); CHOLESTEROL 189 mg/dL (<200); CREATININE 0.68 mg/dL (0.55-1.02); LDL CHOLESTEROL 105 mg/dL (9-159); POTASSIUM 4.4 mmol/L (3.5-5.1); SGOT/AST 23 IU/L (3-35); SGPT/ALT 38 U/L (12-78); SODIUM 137 mmol/L (136-145); TOTAL PROTEIN 8.1 gm/dL (6.4-8.2); TRIGLYCERIDES 212 mg/dl (<150)
== END | disposition home or self-care (01) ==
LOC: LAB 10:55
PROVIDERS: ATTEND Internal Medicine
DX: E11.42 Type 2 diabetes mellitus with diabetic polyneuropathy (principal); M06.031 Rheumatoid arthritis without rheumatoid factor, right wrist; M06.032 Rheumatoid arthritis without rheumatoid factor, left wrist

== ENCOUNTER 2021-01-14 21:20 | Emergency (ER) | payer MEDICAID ==
[~2021-01-14] VITALS: Ht 165.1 cm; Wt 77.1 kg
[2021-01-14 21:25] VITALS: BP 127/71
[2021-01-14] MEDS ORDERED: TRAZODONE50 MG PO (21:33)
[2021-01-14 22:00] LABS: BASO % 0.4 % (0.0-1.0); EOS # 0.1 10*3/uL (0.0-0.4); EOS % 0.7 % (1.0-4.0); LYMPH # 2.8 10*3/uL (1.3-4.4); MEAN CELL VOLUME 90.7 fl (81.0-99.0); MEAN CORPUSCULAR HGB 29.4 pg (27.0-31.0); MEAN CORPUSCULAR HGB CONC 32.4 g/dl (33.0-37.0); MEAN PLATELET VOLUME 9.2 fl (9.6-12.3); MONO # 0.8 10*3/uL (0.1-1.0); MONO % 7.7 % (3.0-9.0); NEUT # 6.3 10*3/uL (2.3-7.9); NEUT % 62.8 % (47.0-73.0); PLATELET COUNT AUTOMATED 196 10*3/uL (130-400); RED BLOOD COUNT 4.08 10*6/uL (4.10-5.10); RED CELL DISTRI WIDTH 12.5 % (0-14.5)
[2021-01-14 22:39] LABS: ALBUMIN 3.5 gm/dl (3.1-4.5); ALKALINE PHOSPHATASE 121 U/L (45-117); BUN 22 mg/dl (7-24); CHLORIDE 107 mmol/L (98-107); CREATININE 0.92 mg/dL (0.55-1.02); POTASSIUM 3.9 mmol/L (3.5-5.1); SGOT/AST 11 IU/L (3-35); SGPT/ALT 40 U/L (12-78); SODIUM 139 mmol/L (136-145); TOTAL PROTEIN 8.3 gm/dL (6.4-8.2)
[2021-01-15] MEDS ORDERED: LEVOFLOXACIN750 M2 PO (23:13)
== END 2021-01-14 23:43 | disposition home or self-care (01) ==
LOC: ED 21:20
PROVIDERS: Internal Medicine
DX: B34.9 Viral infection, unspecified (principal); Z20.822 Contact with and (suspected) exposure to COVID-19; Z88.6 Allergy status to analgesic agent; Z87.891 Personal history of nicotine dependence

== ENCOUNTER 2021-01-15 18:33 | Emergency (ER) | payer MEDICAID ==
[~2021-01-15] VITALS: Ht 165.1 cm; Wt 77.1 kg
[~2021-01-15 18:33] MED LIST changes: +TRAZODONE50 MG PO
[2021-01-15] MEDS ORDERED: LEVOFLOXACIN750 M2 PO (23:13)
[2021-01-15 23:25] VITALS: BP 128/66
== END 2021-01-15 23:49 | disposition home or self-care (01) ==
LOC: ED 18:33
DX: J18.9 Pneumonia, unspecified organism (principal); Z88.6 Allergy status to analgesic agent; Z87.891 Personal history of nicotine dependence

== ENCOUNTER 2021-01-29 23:30 | Emergency (ER) | payer OTHER ==
[~2021-01-29 23:30] MED LIST changes: +LEVOFLOXACIN750 M2 PO
[2021-01-29 23:39] VITALS: BP 102/61
[2021-01-30 00:13] LABS: BASO % 0.3 % (0.0-1.0); EOS # 0.1 10*3/uL (0.0-0.4); EOS % 0.9 % (1.0-4.0); HEMATOCRIT 34.6 % (37.0-47.0); LYMPH # 3.3 10*3/uL (1.3-4.4); LYMPH % 34.3 % (27.0-41.0); MEAN CELL VOLUME 87.8 fl (81.0-99.0); MEAN CORPUSCULAR HGB 29.4 pg (27.0-31.0); MEAN CORPUSCULAR HGB CONC 33.5 g/dl (33.0-37.0); MEAN PLATELET VOLUME 10.2 fl (9.6-12.3); MONO # 0.6 10*3/uL (0.1-1.0); NEUT # 5.5 10*3/uL (2.3-7.9); NEUT % 58.1 % (47.0-73.0); PLATELET COUNT AUTOMATED 210 10*3/uL (130-400); RED BLOOD COUNT 3.94 10*6/uL (4.10-5.10); RED CELL DISTRI WIDTH 11.9 % (0-14.5); WHITE BLOOD COUNT 9.5 10*3/uL (4.8-10.8)
[2021-01-30 00:25] LABS: BUN 9 mg/dl (7-24); CHLORIDE 109 mmol/L (98-107); CREATININE 0.76 mg/dL (0.55-1.02); POTASSIUM 3.4 mmol/L (3.5-5.1); SODIUM 142 mmol/L (136-145)
[2021-01-30] MEDS ORDERED: PREDNISONE20 M1 PO (00:45)
== END 2021-01-30 01:19 | disposition home or self-care (01) ==
LOC: ED 23:30
PROVIDERS: Internal Medicine
DX: B34.9 Viral infection, unspecified (principal); J40 Bronchitis, not specified as acute or chronic; Z88.6 Allergy status to analgesic agent; Z87.891 Personal history of nicotine dependence

== ENCOUNTER → 2021-03-16 | Outpatient (CLI) | payer OTHER ==
[~2021-03-16] MED LIST changes: +PREDNISONE20 M1 PO
== END | disposition home or self-care (01) ==
LOC: RAD 10:50
PROVIDERS: ATTEND Internal Medicine
DX: R05.9 Cough, unspecified (principal)

== ENCOUNTER → 2021-04-10 | Outpatient (CLI) | payer OTHER ==
[2021-04-10 06:58] LABS: BASO % 0.5 % (0.0-1.0); EOS # 0.1 10*3/uL (0.0-0.4); EOS % 1.5 % (1.0-4.0); HEMATOCRIT 37.9 % (37.0-47.0); LYMPH # 2.7 10*3/uL (1.3-4.4); LYMPH % 36.9 % (27.0-41.0); MEAN CORPUSCULAR HGB 28.9 pg (27.0-31.0); MEAN CORPUSCULAR HGB CONC 32.5 g/dl (33.0-37.0); MEAN PLATELET VOLUME 9.9 fl (9.6-12.3); MONO # 0.5 10*3/uL (0.1-1.0); MONO % 6.6 % (3.0-9.0); NEUT # 3.9 10*3/uL (2.3-7.9); PLATELET COUNT AUTOMATED 198 10*3/uL (130-400); RED BLOOD COUNT 4.26 10*6/uL (4.10-5.10); RED CELL DISTRI WIDTH 12.3 % (0-14.5); WHITE BLOOD COUNT 7.3 10*3/uL (4.8-10.8)
[2021-04-10 07:13] LABS: ALBUMIN 3.4 gm/dl (3.1-4.5); BUN 14 mg/dl (7-24); CHLORIDE 111 mmol/L (98-107); CHOLESTEROL 193 mg/dL (<200); POTASSIUM 4.6 mmol/L (3.5-5.1); SGOT/AST 17 IU/L (3-35); SGPT/ALT 23 U/L (12-78); SODIUM 142 mmol/L (136-145); TRIGLYCERIDES 170 mg/dl (<150)
[2021-04-10 07:14] LABS: ALKALINE PHOSPHATASE 103 U/L (45-117); LDL CHOLESTEROL 105 mg/dL (9-159); TOTAL PROTEIN 8.1 gm/dL (6.4-8.2)
== END | disposition home or self-care (01) ==
LOC: LAB 06:10
PROVIDERS: ATTEND Internal Medicine
DX: E11.42 Type 2 diabetes mellitus with diabetic polyneuropathy (principal); M06.031 Rheumatoid arthritis without rheumatoid factor, right wrist; M06.032 Rheumatoid arthritis without rheumatoid factor, left wrist

== ENCOUNTER 2024-12-30 23:32 | Emergency (ER) | payer OTHER ==
[~2024-12-30] VITALS: Wt 77.1 kg
[2024-12-30 23:45] VITALS: BP 124/42
[2024-12-31] MEDS ORDERED: Cyclobenzaprine Hydrochlorid 10 MG TAB PO ONE (00:10)
[2024-12-31] MEDS ORDERED: PREDNISONE10 M1 PO (00:57)
[2024-12-31] MEDS ORDERED: CYCLOBENZAPRINE10 MG PO (00:57)
[2024-12-31] MEDS ORDERED: MELOXICAM10 MG PO (00:57)
== END 2024-12-31 01:03 | disposition home or self-care (01) ==
LOC: ED 23:32
DX: S16.1XXA Strain of muscle, fascia and tendon at neck level, initial encounter (principal); S46.011A Strain of muscle(s) and tendon(s) of the rotator cuff of right shoulder, initial encounter; E11.9 Type 2 diabetes mellitus without complications; F32.A Depression, unspecified; F41.9 Anxiety disorder, unspecified; M19.90 Unspecified osteoarthritis, unspecified site; E78.5 Hyperlipidemia, unspecified; E66.9 Obesity, unspecified; Z68.30 Body mass index [BMI] 30.0-30.9, adult; Z88.5 Allergy status to narcotic agent; Z87.891 Personal history of nicotine dependence; Z90.710 Acquired absence of both cervix and uterus; Z90.722 Acquired absence of ovaries, bilateral; Z98.890 Other specified postprocedural states; X58.XXXA Exposure to other specified factors, initial encounter; Y93.89 Activity, other specified; Y92.89 Other specified places as the place of occurrence of the external cause; Y99.8 Other external cause status